=== PATIENT | male | born 1960 | race Caucasian/White ===

== ENCOUNTER 2020-11-09 07:15 | Day surgery (SDC) | payer OTHER ==
[~2020-11-09] VITALS: Ht 165.1 cm; Wt 72.3 kg
[~2020-11-09 07:15] MED LIST: COZAAR100 MG PO; METFORMIN HCL500 MG PO
[2020-11-09] MEDS ORDERED: VITAMIN C1000 MG PO (07:45)
[2020-11-09] MEDS ORDERED: CELECOXIB200 MG PO (10:07)
[2020-11-09] MEDS ORDERED: HYDROCODON-ACE1 EA11 PO (10:08)
--- NOTE | 2020-11-09 10:11 | NUR ---
11/09/20 1011 Sheets,Jacqueline 1004 PT ARRIVED TO PACU ON 6L VIA MASK, RESP EVEN AND UNLABORED WITH ORAL AIRWAY IN PLACE. SLING PLACED. VSS.
--- NOTE | 2020-11-09 10:56 | NUR ---
1050 PT BACK TO ROOM FROM PACU, PT DROWSY, HE IS TALKING CONSTANTLY BUT DOES NOT OPEN HIS EYES. HIS IS AT BESIDE. PTS LT HAND IS WARM TO TOUCH HE IS NOT ABLE TO FEEL ME TOUCHING IT. HE IS NOT ABLE TO MOVE HIS FINGERS. HE DENIES NAUSEA.
--- NOTE | 2020-11-09 11:46 | NUR ---
1145 PT EATING GRILLED CHEESE AND TOMATOE SOUP TOLERATES WELL.
--- NOTE | 2020-11-09 12:34 | OR ---
[facility] [address], [place] [address] Signed DATE OF OPERATION: 11/09/2020 SURGEON: Cyndee Li MD PREOPERATIVE DIAGNOSIS: Rotator cuff tear, left shoulder. POSTOPERATIVE DIAGNOSIS: Left partial rotator cuff tear. PROCEDURE PERFORMED: Left shoulder arthroscopy with debridement. RECOATING MACHINE OPERATOR: None. ANESTHESIA: General. BLOOD LOSS: Minimal. BRIEF HISTORY: Zachary is a 60-year-old gentleman with pain and weakness in his arm. Risks and benefits of operative treatment were discussed with him after MRI showed a rotator cuff tear and anterior portion of the supraspinatus. DESCRIPTION OF PROCEDURE: Once consent was obtained, he was taken to the operating room. After adequate anesthesia, he was placed on the operating room table in the beach chair position, all downside pressure points were well padded. The shoulder was prepped and draped in the standard sterile fashion. The shoulder was injected with 15 mL 0.25% Marcaine with epinephrine as was subacromial space. Standard posterior portal was made and the scope was introduced in the shoulder. ARTHROSCOPIC FINDINGS: The glenohumeral surfaces were intact. Biceps, biceps anchor and labrum were intact. The supraspinatus was intact. There was some minimal fraying of the anterior portion of the supraspinatus with some longitudinal tearing. No full-thickness tear was identified. The remainder of the rotator cuff was intact. The subacromial space showed Electronically Signed By: CYNDEE LI MD 11/09/20 1234 PATIENT NAME: ZACHARY RIDER OPERATIVE REPORT DATE OF : 64 REPORT #: [id number] PHYSICIAN: CYNDEE LI MD PCP: SHANICE NEWBY MD REPORT IS CONFIDENTIAL AND NOT TO BE RELEASED WITHOUT AUTHORIZATION [facility] [address], [place] [address] Signed significant bursitis throughout with again what appeared to be a significant partial thickness rotator cuff tear that had now healed. Palpating the margins of the tear and the anterior supraspinatus showed no loose ends, no free holes or avenues into the shoulder itself. The surrounding rotator cuff was intact. Diagnostic arthroscopy was undertaken as noted above. The scope was withdrawn, placed in subacromial space and the bursa was removed using a combination of Mitek VAPR and shaver. The rotator cuff tear, which had been marked with a spinal needle was identified and evaluated as noted above. Again, no free margins were noted. The surrounding area was debrided and slightly decorticated to create a bleeding bony bed. This will provide more scar tissue overlying the prior healing area. The scope was then withdrawn. Portals were closed with 3-0 nylon and dressed with Allevyn and OpSite. He tolerated the procedure well. All sponge, needle, and instrument counts were correct. Cyndee Li MD BA/CLYDE /[id number] Copies: ~ Electronically Signed By: CYNDEE LI MD 11/09/20 1234 PATIENT NAME: ZACHARY RIDER OPERATIVE REPORT DATE OF : 64 REPORT #: [id number] PHYSICIAN: CYNDEE LI MD PCP: SHANICE NEWBY MD REPORT IS CONFIDENTIAL AND NOT TO BE RELEASED WITHOUT AUTHORIZATION
--- NOTE | 2020-11-09 12:42 | NUR ---
ASSISTED TO BR VOIDS QS. STATES HE THINKS HE FEELS BETTER GETTING UP AND MOVING. READY TO GET DRESSED AND GO HOME. ARM SLING ON TO SUPPORT ARM DUE TO BLOCK AND HE DOESNT HAVE CONTROLL OF ARM.
--- NOTE | 2020-11-09 13:01 | NUR ---
1230 PT UP TO BATHROOM WITH MINIMAL ASSIST, HE WAS ABLE TO VOID, DENIES PAIN TO LT ARM, HIS FINGERS ARE WARM AND HE IS ABLE TO MOVE THEM BUT REPORTS THEY ARE STILL NUMB TO TOUCH. STATES READINESS TO GO HOME PT AWAKE AND ALERT. WENT OVER INSTRUCTION FOR CRYO CUFF AND SHOULDER IMMOBILIZER WITH AND PT BOTH VOICED UNDERSTANDING.
--- NOTE | 2020-11-10 20:06 | EKG ---
[facility] [address] [place], [place] [address] Signed Normal sinus rhythm Normal ECG No previous ECGs available Confirmed by REED MACIEL DO ([id number]) on 11/10/2020 8:05:59 PM Electronically Signed By: REED MACIEL DO 11/10/20 2006 PATIENT NAME: ZACHARY RIDER Electrocardiogram DATE OF : 64 PHYSICIAN: REED MACIEL DO REPORT #: [id number] REPORT IS CONFIDENTIAL AND NOT TO BE RELEASED WITHOUT AUTHORIZATION
== END 2020-11-09 13:15 | disposition home or self-care (01) ==
LOC: DS 07:15
PROVIDERS: ATTEND Specialist
PROC: 0RBK4ZZ Excision of Left Shoulder Joint, Percutaneous Endoscopic Approach (ICD-10-PCS; principal; 2020-11-09 09:45)
DX: M75.112 Incomplete rotator cuff tear or rupture of left shoulder, not specified as traumatic (principal); G89.18 Other acute postprocedural pain; E11.9 Type 2 diabetes mellitus without complications; Z79.84 Long term (current) use of oral hypoglycemic drugs; M19.90 Unspecified osteoarthritis, unspecified site; I10 Essential (primary) hypertension; E78.00 Pure hypercholesterolemia, unspecified
CPT/HCPCS: 00450; 64415; 76942; 93005; 93010; C1713; J0690; J1100; J1885; J2001; J2250; J2405; J2704; J2795; J3010; J7121